=== PATIENT | female | born 1975 | race Caucasian/White ===

== ENCOUNTER 2018-05-27 21:36 | Emergency (ER) | payer BC ==
[~2018-05-27] VITALS: Ht 182.9 cm; Wt 164.2 kg
[~2018-05-27 21:36] MED LIST: ABILIFY10 MG PO; AMOXICILLIN 50500 MG PO; CLONAZEPAM1 GM PO; DESYREL50 MG PO; FLEXERIL PO; HYDROCODONE-AP1 EAC6 PO; LORTABELXR PO; NOHOMEMEDICATIONS; PERCOCET 5-3251 EACH PO; TOPAMAX; ZOLOFT25 MG PO
[2018-05-27] MEDS ORDERED: FLEXERIL PO ×2 (21:48→22:28)
[2018-05-27] MEDS ORDERED: NORCO 5-325 TA1 EACH PO (21:48)
[2018-05-27] MEDS ORDERED: MEDROLDOSEPACK PO (22:26)
[2018-05-27 22:39] VITALS: BP 142/84
== END 2018-05-27 22:31 | disposition home or self-care (01) ==
LOC: M.ERS 21:36
DX: M25.561 Pain in right knee (principal); F17.200 Nicotine dependence, unspecified, uncomplicated; Z88.5 Allergy status to narcotic agent; Z88.8 Allergy status to other drugs, medicaments and biological substances; W10.9XXA Fall (on) (from) unspecified stairs and steps, initial encounter; Y93.89 Activity, other specified; Y92.89 Other specified places as the place of occurrence of the external cause; Y99.8 Other external cause status

== ENCOUNTER 2021-01-09 21:14 | Emergency (ER) | payer OTHER ==
[~2021-01-09] VITALS: Ht 182.9 cm; Wt 186.9 kg
[~2021-01-09 21:14] MED LIST changes: +MEDROLDOSEPACK PO; +NORCO 5-325 TA1 EACH PO
[2021-01-09 22:01] LABS: ABSOLUTE BASOPHILS 0.1 thou/uL (0.0-0.2); ABSOLUTE EOSINOPHILS 0.5 thou/uL (0.0-0.7); ABSOLUTE LYMPHOCYTES 4.7 thou/uL (0.8-5.3); ABSOLUTE MONOCYTES 1.2 thou/uL (0.0-1.2); ABSOLUTE NEUTROPHILS 9.8 thou/uL (1.6-8.1); BASOPHILS 0.8 %; EOSINOPHILS 3.2 %; HEMATOCRIT 42.1 % (37.0-47.0); HEMOGLOBIN 14.4 gm/dL (12.0-15.0); LYMPHOCYTES 28.8 %; MCH 30.6 pg (26.0-34.0); MCHC 34.3 g/dL (28.0-37.0); MCV 89.3 fL (80.0-100.0); MONOCYTES 7.1 %; MPV 7.2 fl. (7.2-11.1); NUCLEATED RBCS 0 /100WBC; PLATELET COUNT* 377 thou/uL (150-400); POLYS 60.1 %; RBC 4.71 mil/uL (4.20-5.00); RDW-CV 13.8 % (10.5-14.5); WBC 16.3 thou/uL (4.0-11.0)
[2021-01-09 22:05] LABS: URINE BILIRUBIN NEGATIVE (Negative); URINE BLOOD NEGATIVE (Negative); URINE CLARITY CLEAR; URINE COLOR YELLOW; URINE GLUCOSE-RANDOM NEGATIVE (Negative); URINE KETONES NEGATIVE (Negative); URINE LEUKOCYTES-REFLEX NEGATIVE (Negative); URINE NITRITE-REFLEX NEGATIVE (Negative); URINE PROTEIN NEGATIVE (Negative); URINE UROBILINOGEN 0.2 E.U./dl (0.2-1.0)
[2021-01-09 22:08] LABS: CALCIUM 8.2 mg/dL (8.5-10.1); CREATININE 0.9 mg/dL (0.6-1.3); POTASSIUM 3.5 mmol/L (3.5-5.1)
[2021-01-09 22:13] LABS: ALBUMIN 2.9 g/dL (3.4-5.0); TOTAL BILIRUBIN 0.6 mg/dL (<0.1-1.0); TOTAL PROTEIN 7.4 g/dL (6.4-8.2)
[2021-01-10] MEDS ORDERED: NORFLEX100 MG PO (00:25)
[2021-01-10] MEDS ORDERED: TORADOL 10 MG T10 MG PO (00:25)
[2021-01-10 00:47] VITALS: BP 134/91
--- NOTE | 2021-01-11 15:12 | EKG ---
[place] [address] ELECTROCARDIOGRAM REPORT Name: TRACEY VAZQUEZ PERLITA Room: [facility]#: [id number] Admission: 01/09/21 Attend Phys: Discharge: 01/10/21 Date of : 79 Date of Service: 01/09/212115 Report #: [id number] THIS REPORT FOR: //name// [facility] ED Test Date: 2021-01-09 Test Time: 21:16:32 Pat Name: TRACEY VAZQUEZ Department: Room: Gender: F Kinesiologist: OR : 1975 Requested By: Pooja Zepeda Order Number: [id number] MD: Jean Claude Caro Measurements Intervals [place] Rate: 105 P: 44 GA: 152 QRS: 41 QRSD: 98 T: 26 QT: 341 QTc: 451 Interpretive Statements Sinus tachycardia LOW VOLTAGE THROUGHOUT No previous ECG available for comparison Electronically Signed On 01-11-2021 15:11:59 PODIATRIST ASSISTANT by Jean Claude Caro [email or web address] <ELECTRONICALLY SIGNED> By: Jean Claude Caro MD, [facility] 01/11/21 1511 15 15 Jean Claude Caro MD, FAC /EPI
== END 2021-01-10 00:49 | disposition home or self-care (01) ==
LOC: M.ERS 21:14
PROVIDERS: Personal Emergency Response Attendant
DX: E04.1 Nontoxic single thyroid nodule (principal); Z20.822 Contact with and (suspected) exposure to COVID-19; R07.89 Other chest pain; G43.909 Migraine, unspecified, not intractable, without status migrainosus; E66.9 Obesity, unspecified; F17.210 Nicotine dependence, cigarettes, uncomplicated; Z90.49 Acquired absence of other specified parts of digestive tract; Z88.5 Allergy status to narcotic agent